=== PATIENT | female | born 1970 | race Caucasian/White ===

== ENCOUNTER 2024-01-19 13:25 | Emergency (ER) | payer BC, SELFPAY ==
[2024-01-19 13:42] VITALS: BP 131/85; PULSE 94; RESP 18; TEMP 36.7; O2SAT 98
--- NOTE | 2024-01-19 14:25 | ED.SKABFB ---
HPI - Skin/Abscess/Foreign Bdy General Chief complaint: Skin/Abscess/Foreign Body Stated complaint: Rash Time Seen by Provider: 01/19/24 14:15 Source: patient Mode of arrival: ambulatory Limitations: no limitations History of Present Illness HPI narrative: Lissette is a 53-year-old female patient presenting to the clinic today with complaints of a rash x9 days. She reports that she was out in the garden and got poison tammy on her left arm and since then it has been spreading. Now it is on her face, left breast, bilateral arms, and bilateral legs. Related Data Allergies Allergy/AdvReac Type Severity Reaction Status Date / Time No Known Allergies Allergy Verified 01/19/24 14:08 Review of Systems Review of Systems: Pertinent positives per HPI. Patient denies any fever, chills, headache, visual changes, dizziness, cough, runny nose, sore throat, shortness of breath, chest pain, palpitations, nausea, vomiting, diarrhea, constipation, abdominal pain, or any urinary issues. PMFSH Comments At the time of my signature, I reviewed and agree with the nursing past medical, surgical, social, and family history. There is no relevant family history pertinent to the patient complaint. Exam Narrative: General: Well-developed, well nourished, in no apparent distress Head: Normocephalic, atraumatic. Cardio: Regular rate and rhythm, s1 and s2 normal, no murmur appreciated. Resp: Clear to auscultation bilaterally, no rhonchi, rales, wheezing or rubs. Integumentary: [place], warm, and dry, Red, raised, blistering, itchy rash to bilateral forearms, bilateral legs, left breast, and to the left side of the face Course Course Emergency Course: Portions of this record may have been created with voice recognition software. Level of Care: Express Care Visit Vital Signs Vital signs: Vital Signs Temperature 36.7 C 01/19/24 13:42 Pulse Rate 94 01/19/24 13:42 Respiratory Rate 18 01/19/24 13:42 Blood Pressure 131/85 01/19/24 13:42 Pulse Oximetry 98 01/19/24 13:42 Oxygen Delivery Room Air 01/19/24 13:42 Temperature 36.7 C 01/19/24 13:42 Pulse Rate 94 01/19/24 13:42 Respiratory Rate 18 01/19/24 13:42 Blood Pressure 131/85 01/19/24 13:42 Pulse Oximetry 98 01/19/24 13:42 Oxygen Delivery Room Air 01/19/24 13:42 Vital signs reviewed MDM - Skin/Abscess/Foreign Bdy MDM Narrative Medical decision making narrative: At the time of visit patient is resting comfortably on the exam table. Patient appears to be nontoxic. Medications given: Dexamethasone 10 mg IM Plan: I suspect patient has poison tammy dermatitis. Prescription for prednisone and triamcinolone cream was sent to the pharmacy. Supportive measures were discussed with the patient and they voiced understanding discharge instructions and agrees to treatment plan. Return precautions reviewed Differential Diagnosis Differential diagnosis: Likely abscess of skin or subcutaneous tissue, viral exanthem, urticaria, herpes zoster, allergic reaction to drug, cellulitis, eczema, insect bites, impetigo and contact dermatitis Discharge Plan Discharge Clinical Impression: Allergic dermatitis due to poison tammy Patient Disposition: Home, Self-Care Condition: Stable Instructions: Antibiotic Form, Poison Tammy (ED) Additional Instructions: Dexamthasone 10mg IM given in the clinic today Apply triamcinolone cream as directed Take prednisone as directed Avoid hot showers May apply calamine lotion to rash Avoid scratching and this can cause a secondary infection May take benadryl 25-50mg every 6 hours as needed for itching. Follow up with your PCP in 3-5 days if symptoms persist or sooner if they worsen Go to the Emergency Room if symptoms worsen- fever, rash spreading with treatment, shortness of breath, tongue swelling, drooling, or chest pain Prescriptions: New triamcinolone acetonide 0.1 % cream 1 applic topi
[2024-01-19] MEDS: dexAMETHasone SOD PHOS INJ 10 MG/ML 1 ML VIAL IM (14:51)
== END 2024-01-19 15:00 | disposition home or self-care (01) ==
PROVIDERS: Emergency Provider Nurse Practitioner Family
DX: L23.7 Allergic contact dermatitis due to plants, except food (principal)
CPT/HCPCS: 96372; 99213; G0463; J1100